=== PATIENT | female | born 1955 | race Caucasian/White ===

== ENCOUNTER → 2020-09-06 17:57 | Outpatient (CLI) | payer OTHER, SELFPAY ==
--- NOTE | ~2020-09-06 | DEXA_ITS ---
Bone Density Report Name: Pari Santamaria Age: 65 Sex: Female Ethnicity: White Date of : 1955 Indication: monitoring treatment; postmenopausal Referring Provider: SANDEEP SOLOMON Study: Bone densitometry was performed. Exam Date: September 06, 2020 Accession number: [id number] Bone Density: Region BMD T-score Z-score Classification AP Spine (L1-L4) 1.031 -0.1 1.8 Normal Femoral Neck (Left) 0.764 -0.8 0.9 Normal Total Hip (Left) 1.028 0.7 2.1 Normal Femoral Neck (Right) 0.697 -1.4 0.3 Osteopenia Total Hip (Right) 0.969 0.2 1.6 Normal Total Hip Mean 0.999 0.5 1.9 Normal World Health Organization criteria for BMD impression classify patients as: Normal (T-score at or above -1.0), Osteopenia (T-score between -1.0 and -2.5), or Osteoporosis (T-score at or below -2.5). 10-year Fracture Risk: FRAX not reported because: Treated for osteoporosis Previous Exams: Region Exam Age BMD T-score BMD Change BMD Change Date g/cm2 vs Baseline vs Previous AP Spine(L1-L4) 09/06/2020 65 1.031 -0.1 0.072 0.011 05/18/2016 61 1.020 -0.2 0.061* 0.022 11/21/2012 57 0.997 -0.5 0.039* 0.029* 09/11/2008 53 0.968 -0.7 0.009 0.009 05/23/2006 51 0.959 -0.8 Total Hip(Left) 09/06/2020 65 1.028 0.7 0.064 0.040 05/18/2016 61 0.988 0.4 0.024 -0.007 11/21/2012 57 0.995 0.4 0.031* -0.035* 09/11/2008 53 1.030 0.7 0.066* 0.066* 05/23/2006 51 0.964 0.2 Total Hip(Right) 09/06/2020 65 0.969 0.2 0.072 0.073 05/18/2016 61 0.896 -0.4 -0.002 -0.016 11/21/2012 57 0.912 -0.2 0.014 0.007 09/11/2008 53 0.904 -0.3 0.007 0.007 05/23/2006 51 0.897 -0.4 *Denotes significance at 95% confidence level, LSC for AP Spine = 0.022 g/cm2, LSC for Total Hip = 0.027 g/cm2 Clinical Information Provided by Patient: Is being treated for osteoporosis Has used the following medications: HRT (i.e. estrogen/hormone therapy), Vitamin D, MTV Patient maximum height was 65.5 Menopause Age: 53 Drinks caffeinated beverages Onset of menses at age 10 Number of children 2 Impression: The patient has low bone mass, based on the Right Femoral Neck T-score. No significant bone loss was observed. Discussion:
== END ==
PROVIDERS: Visit Provider Obstetrics & Gynecology Gynecology
DX: Z78.0 Asymptomatic menopausal state (principal); M85.88 Other specified disorders of bone density and structure, other site
CPT/HCPCS: 77080

== ENCOUNTER 2025-03-03 14:07 | Outpatient (CLI) | payer MEDICARE, SELFPAY ==
--- NOTE | ~2025-03-03 | DEXA_ITS ---
Bone Density Report Name: ABEL STOVALL Age: 70 Sex: Female Ethnicity: White Date of : 1955 Indication: postmenopausal; screening for osteoporosis; Referring Provider: SANDEEP SOLOMON Study: Bone densitometry was performed. Exam Date: March 03, 2025 Accession number: [id number] Bone Density: Region BMD T-score Z-score Classification AP Spine(L1-L4) 1.064 0.2 2.4 Normal Femoral Neck (Left) 0.724 -1.1 0.8 Osteopenia Total Hip (Left) 0.958 0.1 1.8 Normal Femoral Neck (Right) 0.657 -1.7 0.2 Osteopenia Total Hip (Right) 0.890 -0.4 1.2 Normal Total Hip Mean 0.924 -0.2 1.5 Normal World Health Organization criteria for BMD impression classify patients as: Normal (T-score at or above -1.0), Osteopenia (T-score between -1.0 and -2.5), or Osteoporosis (T-score at or below -2.5). 10-year Fracture Risk(1): Major Osteoporotic Fracture 11% Hip Fracture 2.0% Reported Risk Factors: [place] (), Neck BMD=0.657, BMI=27.9 (1) FRAX(R) Version 3.08. Fracture probability calculated for an untreated patient. Fracture probability may be lower if the patient has received treatment. Previous Exams: -- Region Exam Age BMD T-score BMD Change BMD Change Date g/cm2 vs Baseline vs Previous -- AP Spine (L1-L4) 03/03/2025 70 1.064 0.2 11.0%* 3.2%# 09/06/2020 65 1.031 -0.1 7.5%# 1.1%# 05/18/2016 61 1.020 -0.2 6.3%* 2.2% 11/21/2012 57 0.997 -0.5 4.0%* 3.0%* 09/11/2008 53 0.968 -0.7 1.0% 1.0% 05/23/2006 51 0.959 -0.8 Total Hip(Left) 03/03/2025 70 0.958 0.1 -0.6% -6.8%# 09/06/2020 65 1.028 0.7 6.6%# 4.0%# 05/18/2016 61 0.988 0.4 2.5% -0.7% 11/21/2012 57 0.995 0.4 3.2%* -3.4%* 09/11/2008 53 1.030 0.7 6.9%* 6.9%* 05/23/2006 51 0.964 0.2 Total Hip(Right) 03/03/2025 70 0.890 -0.4 -0.8% -8.2%# 09/06/2020 65 0.969 0.2 8.0%# 8.2%# 05/18/2016 61 0.896 -0.4 -0.2% -1.7% 11/21/2012 57 0.912 -0.2 1.6% 0.8% 09/11/2008 53 0.904 -0.3 0.8% 0.8% 05/23/2006 51 0.897 -0.4 -- *Denotes significance at 95% confidence level, LSC for AP Spine = 0.022 g/cm2, LSC for Total Hip = 0.027 g/cm2 # Denotes dissimilar scan types or analysis methods Clinical Information Provided by Patient: Has used the following medications: HRT (i.e. estrogen/hormone therapy), Vitamin D Patient maximum height was 65.5 Menopause Age: 53 Onset of menses at age 10 Number of children 2 Impression: The patient has low bone mass, based on the Right Femoral Neck T-score. The patient has an estimated ten-year risk of hip fracture of 2% and an estimated ten-year risk of major fracture of 11%, based on the WHO FRAX algorithm. Unable to evaluate interval change due to the use of different scan modes. Discussion: BONE DENSITY IS LOW AT ONE OR MORE SKELETAL SITES. This patient's lowest T-score is low at one or more skeletal sites. It meets the World Health Organization's (WHO) criteria for ?low bone mass? (T-score between -1.0 and -2.5). The patient's 10-year risk of fracture as calculated by FRAX is less than the threshold where pharmacological therapy is recommended by the National Osteoporosis Foundation (NOF). However, all treatment decisions require clinical judgment and consideration of individual patient factors, including patient preferences, comorbidities, previous drug use, risk factors not captured in the FRAX model (e.g., frailty, falls, vitamin D deficiency, increased bone turnover, interval significant decline in bone density) and possible under or overestimation of fracture risk by FRAX. The patient should follow a healthful lifestyle (good nutrition with adequate calcium and vitamin D, and appropriate weight-bearing exercise). Follow-Up: Consider repeating this study in 2 to 3 years to reassess this patient's status, or sooner if there is some new clinical indication. Reported by: HITESH on 03/03/2025 2:27:00 PM. Reviewed, dictated and finalized at location A.
== END 2025-03-03 14:08 | disposition home or self-care (01) ==
LOC: MICIMG 14:08
PROVIDERS: PCP Obstetrics & Gynecology Gynecology; Visit Provider Obstetrics & Gynecology Gynecology
DX: M85.852 Other specified disorders of bone density and structure, left thigh (principal); M85.851 Other specified disorders of bone density and structure, right thigh; Z78.0 Asymptomatic menopausal state
CPT/HCPCS: 77080